=== PATIENT | female | born 1940 | race Caucasian/White ===

== ENCOUNTER 2018-04-29 09:12 | Outpatient (CLI) | payer MEDICARE, OTHER ==
[2018-04-29] MEDS ORDERED: Iopamidol 370 76% 100 ML VIAL ONE (11:26)
--- NOTE | 2018-04-29 13:22 | CT ---
CT ABDOMEN WITH CONTRAST: HISTORY: Bilateral upper quadrant pain, worsening on the left side, symptoms for 2 to 3 months. FINDINGS: Dependent atelectatic changes in the lung base. Normal heart size. No significant pericardial fluid . The visualized aorta does have atherosclerotic disease. No aneurysm, dissection, or periaortic fa t stranding. Symmetric attenuation of the psoas muscles. There is hyperdense material within the gallbladder, eit her due to sludge or stones. The common bile duct is dilated, measuring 1.2 cm. There is also mild intrahepatic biliary dilatation. No enhancing masses in the liver. The spleen, pancreas, and right adrenal glands are unremarkable. There is mild atrophy of the pancreas without masses. There is nod ularity of the medial limb of the left adrenal gland, measuring 0.8 cm. No gastrohepatic, retrocrural, or periportal lymphadenopathy. The visualized mesenteric does not demonstrate any masses. The visualized alimentary canal is unrema rkable. Multiple exophytic hypodensities in the left and right kidney are compatible with cysts. Bilaterally , no obstructive uropathy. No lytic or blastic lesions within the visualized osseous structures. IMPRESSION: 1. Hyperdense material in the lumen of the gallbladder, which may represent sludge or stones. There is also dilatation of the intrahepatic and extrahepatic biliary system without obvious mass or calci fication. Gallbladder ultrasound is recommended to assess the gallbladder. Additionally, endoscope retrograde cholangiopancreatography or magnetic resonance cholangiopancreatography may be beneficial. 2. Bilateral renal cortical cysts. POS: [facility]
== END 2018-04-29 09:13 | disposition home or self-care (01) ==
LOC: MADLAB 09:12
PROVIDERS: ATTEND Physician Assistant
DX: R10.9 Unspecified abdominal pain (principal); K83.8 Other specified diseases of biliary tract; K82.9 Disease of gallbladder, unspecified; N28.1 Cyst of kidney, acquired
CPT/HCPCS: 36415; 74160; 82565; Q9967

== ENCOUNTER 2019-08-10 09:24 | Emergency (ER) | payer MEDICARE, OTHER ==
[2019-08-10 10:34] LABS: #Basophils 0.1 thou/uL (0.0-0.2); #Eosinphils 0.1 thou/uL (0.0-0.7); #Monocytes 0.5 thou/uL (0.11-0.59); #Neutrophils 7.7 thou/uL (1.40-6.50); %Basophils 1.2 % (0.0-1.0); %Eosinophils 1.1 % (0.0-10.0); %Lymphocytes 18.7 % (21.0-51.0); %Monocytes 4.9 % (0.0-10.0); Hemoglobin 14.4 g/dL (12.0-16.0); Mean Corpuscular HGB CONC 30.2 g/dL (32.0-36.0); Mean Corpuscular Hemoglobin 27.7 pg (27.0-31.0); Mean Corpuscular Volume 91.6 fL (78.0-98.0); Mean Platelet Volume 7.9 fL (7.4-10.4); Platelet Count 254 thou/uL (130-400); RBC Distribution Width 13.5 % (11.5-14.5); Red Blood Cell (RBC) Count 5.22 mill/uL (4.20-5.40); White Blood Cell (WBC) Count 10.5 thou/uL (4.8-10.8)
[2019-08-10 10:42] LABS: ALT (SGPT) 15 U/L (8-55); AST (SGOT) 19 U/L (5-34); Albumin 4.2 g/dL (3.4-4.8); Alkaline Phosphatase 95 U/L (40-110); Anion Gap 19 mmol/L (10-20); BUN (Urea Nitrogen) 10 mg/dL (9.8-20.1); Bilirubin, Total 0.7 mg/dL (0.2-1.2); Calc. Creatinine Clearance 0 mL/min (70-130); Calcium 9.5 mg/dL (7.8-10.44); Carbon Dioxide 24 mmol/L (23-31); Chloride 101 mmol/L (98-107); Estimated GFR-MDRD 62; Globulin 2.9 g/dL (2.4-3.5); Glucose 116 mg/dL (83-110); Protein, Total 7.1 g/dL (6.0-8.3); Sodium 140 mmol/L (136-145); Uric Acid 4.3 mg/dL (2.6-6.0)
[2019-08-10] MEDS ORDERED: traMADol HCl 50 MG TAB ONE (11:15)
--- NOTE | 2019-08-10 11:37 | RAD ---
RIGHT KNEE FOUR VIEWS: HISTORY: Knee pain. FINDINGS: The medial and lateral joint spaces are maintained. Minimal degenerative change. No fracture. No join t effusion. IMPRESSION: Unremarkable right knee. POS: [facility]
== END 2019-08-10 11:21 | disposition home or self-care (01) ==
LOC: MADERS 09:24
DX: M70.41 Prepatellar bursitis, right knee (principal); I10 Essential (primary) hypertension; F17.200 Nicotine dependence, unspecified, uncomplicated; E78.5 Hyperlipidemia, unspecified; M10.9 Gout, unspecified
CPT/HCPCS: 36415; 80053; 84550; 85025; 86140

== ENCOUNTER 2021-03-04 17:58 | Emergency (ER) | payer MEDICARE, OTHER | END 2021-03-04 18:49 | disposition home or self-care (01) | LOC: MADERS 17:58 → EEVIPCON 17:58 → MADERS 18:49 | DX: M62.838 Other muscle spasm (principal); I10 Essential (primary) hypertension; E78.5 Hyperlipidemia, unspecified; F17.200 Nicotine dependence, unspecified, uncomplicated | CPT/HCPCS: 99283 ==

== ENCOUNTER 2022-05-30 14:17 | Emergency (ER) | payer MEDICARE, OTHER ==
[2022-05-30] MEDS ORDERED: HYDROcodone/Acetaminophen 5/325 mg Tablet ONE (15:40)
[2022-05-30 15:41] LABS: #Basophils 0.1 thou/uL (0.0-0.2); #Eosinphils 0.1 thou/uL (0.0-0.7); #Lymphocytes 2.1 thou/uL (1.20-3.40); #Monocytes 0.5 thou/uL (0.11-0.59); #Neutrophils 6.3 thou/uL (1.40-6.50); %Basophils 0.8 % (0.0-1.0); %Lymphocytes 22.9 % (21.0-51.0); %Monocytes 5.7 % (0.0-10.0); %Neutrophils 69.7 % (42.0-75.0); Hemoglobin 15.8 g/dL (12.0-16.0); Mean Corpuscular HGB CONC 29.8 g/dL (32.0-36.0); Mean Corpuscular Hemoglobin 29.9 pg (27.0-31.0); Mean Corpuscular Volume 100.4 fl (78.0-98.0); Mean Platelet Volume 8.7 fL (7.4-10.4); Platelet Count 198 10x3/uL (130-400); RBC Distribution Width 15.3 % (11.5-14.5); Red Blood Cell (RBC) Count 5.26 mill/uL (4.20-5.40)
[2022-05-30 15:42] LABS: MDiff Complete? YES; Macrocytosis SLIGHT = 6-15 cells (100X) (0-5/hpf); Platelet Morphology Comment Appears Adequate
[2022-05-30 15:49] LABS: ALT (SGPT) 8 U/L (8-55); AST (SGOT) 15 U/L (5-34); Albumin 4.2 g/dL (3.4-4.8); Alkaline Phosphatase 97 U/L (40-110); Anion Gap 14 mmol/L (10-20); BUN (Urea Nitrogen) 8 mg/dL (9.8-20.1); Bilirubin, Total 0.8 mg/dL (0.2-1.2); Calc. Creatinine Clearance 0 mL/min (70-130); Calcium 9.6 mg/dL (7.8-10.44); Carbon Dioxide 30 mmol/L (23-31); Chloride 97 mmol/L (98-107); Estimated GFR 51; Glucose 104 mg/dL (83-110); Potassium 3.9 mmol/L (3.5-5.1); Protein, Total 7.2 g/dL (5.8-8.1); Sodium 137 mmol/L (136-145)
[2022-05-30] MEDS ORDERED: traMADol HCl 50 MG TAB ONE (16:18)
== END 2022-05-30 16:30 | disposition home or self-care (01) ==
LOC: MADERS 14:17
DX: M62.272 Nontraumatic ischemic infarction of muscle, left ankle and foot (principal); E78.5 Hyperlipidemia, unspecified; I10 Essential (primary) hypertension; F17.200 Nicotine dependence, unspecified, uncomplicated
CPT/HCPCS: 36415; 80053; 85025; 86140

== ENCOUNTER 2023-09-16 08:32 | Emergency (ER) | payer MEDICARE, OTHER ==
[2023-09-16] MEDS ORDERED: fentaNYL 50 mcg/mL 1 mL Vial ONE ×2 (09:36→10:37)
[2023-09-16] MEDS ORDERED: Ondansetron PF 4 MG/2 ML Vial ONE (09:37)
[2023-09-16 09:53] LABS: #Basophils 0.1 thou/uL (0.0-0.2); #Lymphocytes 0.7 thou/uL (1.20-3.40); #Monocytes 0.6 thou/uL (0.11-0.59); #Neutrophils 4.6 thou/uL (1.40-6.50); %Basophils 1.2 % (0.0-1.0); %Eosinophils 0.2 % (0.0-10.0); %Lymphocytes 12.3 % (21.0-51.0); %Monocytes 9.3 % (0.0-10.0); Hematocrit 54.8 % (36.0-47.0); Mean Corpuscular HGB CONC 29.2 g/dL (32.0-36.0); Mean Corpuscular Hemoglobin 28.6 pg (27.0-31.0); Mean Corpuscular Volume 97.9 fl (78.0-98.0); Mean Platelet Volume 7.3 fL (7.4-10.4); Platelet Adequacy Comment Appears Adequate; Platelet Count 191 10x3/uL (130-400); RBC Distribution Width 13.4 % (11.5-14.5)
[2023-09-16 10:01] LABS: ALT (SGPT) 14 U/L (8-55); AST (SGOT) 26 U/L (5-34); Alkaline Phosphatase 83 U/L (40-110); Anion Gap 17 mmol/L (10-20); BUN (Urea Nitrogen) 16 mg/dL (9.8-20.1); Bilirubin, Total 0.4 mg/dL (0.2-1.2); CK (CPK) 36 U/L (29-168); Calc. Creatinine Clearance 0 mL/min (70-130); Calcium 9.5 mg/dL (7.8-10.44); Carbon Dioxide 24 mmol/L (23-31); Chloride 98 mmol/L (98-107); Estimated GFR 44; Globulin 2.8 g/dL (2.4-3.5); Glucose 83 mg/dL (83-110); Potassium 4.4 mmol/L (3.5-5.1); Protein, Total 6.8 g/dL (5.8-8.1); Sodium 135 mmol/L (136-145)
[2023-09-16 10:05] LABS: MDiff Complete? YES
[2023-09-16 10:27] LABS: SARS-CoV-2 E Target Positive; SARS-CoV-2 N2 Target Positive; SARS-CoV-2 NAA Rapid Test DETECTED (NotDetected); SARS-CoV-2 RdRP gene Positive
[2023-09-16] MEDS ORDERED: Gabapentin 100 MG CAP ONE (10:37)
[2023-09-16] MEDS ORDERED: Sodium Chloride 0.9% 500 ML ONE (10:46)
[2023-09-16 11:19] LABS: Bilirubin Negative (Negative); Blood, Urine Negative (Negative); Glucose, Urine (Dipstick) Negative (Negative); Ketone, Urine Negative (Negative); Leukocyte Negative (Negative); Nitrite Negative (Negative); Protein, Urine (Dipstick) 100 mg/dL (Neg-Trace); Urobilinogen 0.2 mg/dL (Less than 2)
[2023-09-16 11:23] LABS: Clarity Hazy (Clear)
[2023-09-16 11:25] LABS: Bacteria/HPF 1+ HPF (None Seen); CAUTI Indications for Culture Pelvic or flank pain; RBC/HPF 0-3 HPF (0-3); WBC/HPF 0-3 HPF (0-3)
[2023-09-16 11:26] LABS: Urine Culture Reflex No No
== END 2023-09-16 12:00 | disposition home or self-care (01) ==
LOC: MADERS 08:32
DX: U07.1 COVID-19 (principal); I10 Essential (primary) hypertension; Z87.891 Personal history of nicotine dependence
CPT/HCPCS: 71045; 80053; 81001; 82550; 85025; 96374; 96375; 96376; J2405; J3010; J7030; U0002

== ENCOUNTER 2023-09-17 19:57 | Emergency (ER) | payer MEDICARE, OTHER ==
[2023-09-17] MEDS ORDERED: Lidocaine 4% Patch ONE (20:30)
[2023-09-17] MEDS ORDERED: Ipratropium/Albuterol 3 ML NEB ONE (20:30)
[2023-09-17] MEDS ORDERED: methylPREDNISolone Sod Succ/PF 125 MG/2 ML VIAL ONE (20:30)
[2023-09-17 20:56] LABS: Anisocytosis SLIGHT = 6-15 cells (100X) (0-5/hpf); Band 2 % (5-11); Hematocrit 58.1 % (36.0-47.0); Hemoglobin 16.6 g/dL (12.0-16.0); Lymphocytes 17 % (21-51); MDiff Complete? YES; Macrocytosis SLIGHT = 6-15 cells (100X) (0-5/hpf); Mean Corpuscular HGB CONC 28.5 g/dL (32.0-36.0); Mean Corpuscular Hemoglobin 28.4 pg (27.0-31.0); Mean Corpuscular Volume 99.4 fl (78.0-98.0); Mean Platelet Volume 7.9 fL (7.4-10.4); Monocytes 6 % (0-10); Neutrophil 75 % (42-75); Platelet Adequacy Comment Appears Adequate; Platelet Count 148 10x3/uL (130-400); RBC Distribution Width 13.8 % (11.5-14.5); Red Blood Cell (RBC) Count 5.85 mill/uL (4.20-5.40); White Blood Cell (WBC) Count 7.5 10x3/uL (4.8-10.8)
[2023-09-17 21:06] LABS: Troponin I 0.096 ng/mL (< 0.028)
[2023-09-17 21:07] LABS: Anion Gap 22 mmol/L (10-20); BUN (Urea Nitrogen) 24 mg/dL (9.8-20.1); Calcium 8.9 mg/dL (7.8-10.44); Carbon Dioxide 18 mmol/L (23-31); Chloride 101 mmol/L (98-107); Glucose 69 mg/dL (83-110); Potassium 4.6 mmol/L (3.5-5.1); Sodium 136 mmol/L (136-145)
[2023-09-17] MEDS ORDERED: Dextrose 50% Abboject 50 ML SYRINGE ONE (21:17)
[2023-09-17 21:19] LABS: Calc. Creatinine Clearance 0 mL/min (70-130); Estimated GFR 26
[2023-09-17] MEDS ORDERED: Aspirin Chewable 81 MG TAB ONE (22:33)
== END 2023-09-17 22:51 | disposition short-term general hospital (02) ==
LOC: MADERS 19:57
DX: U07.1 COVID-19 (principal); G93.40 Encephalopathy, unspecified; E16.2 Hypoglycemia, unspecified; I21.4 Non-ST elevation (NSTEMI) myocardial infarction; I10 Essential (primary) hypertension; Z87.891 Personal history of nicotine dependence
CPT/HCPCS: 36416; 70450; 71045; 72131; 80048; 83605; 84484; 85025; 93005; 96374; 96375; J2930; J7620; J7999